=== PATIENT | male | born 1975 | race Caucasian/White ===

== ENCOUNTER 2020-11-05 22:27 | Emergency (ER) | payer OTHER, BC ==
[~2020-11-05] VITALS: Ht 182.9 cm; Wt 131.0 kg
[~2020-11-05 22:27] MED LIST: ATORVASTATIN CA10 MG PO; BL IBUPROFEN200 MG PO; DEPO-TESTOS100 MG/ML IM; FLEXERIL PO; LEVOTHYROXIN75 MCG PO; LEVOTHYROXIN88 MC1 PO; LEVOTHYROXINE50 MCG PO; LISINOPRIL10 MG PO; LISINOPRIL20 M1 PO; METFORMIN500 MG PO; ONE TOUCH ULTRA 100 TOP; ONETOUCH DELICA30 G TOP; PROAIR HFA IN; TIZANIDINE4 MG PO; ULTRAM50 M1 PO; [UNRECOGNIZED DRUG - OTHER] EX; [UNRECOGNIZED DRUG - OTHER] XX
[2020-11-05] MEDS ORDERED: MOTRIN400 MG/TAB PO (22:46)
[2020-11-05 23:28] VITALS: BP 151/86
== END 2020-11-05 23:40 | disposition home or self-care (01) | DRG 605 ==
LOC: ED 22:27
DX: S80.812A Abrasion, left lower leg, initial encounter (principal); I10 Essential (primary) hypertension; E03.9 Hypothyroidism, unspecified; E11.9 Type 2 diabetes mellitus without complications; F17.200 Nicotine dependence, unspecified, uncomplicated; V49.40XA Driver injured in collision with unspecified motor vehicles in traffic accident, initial encounter; Y99.0 Civilian activity done for income or pay; Z79.84 Long term (current) use of oral hypoglycemic drugs

== ENCOUNTER 2022-06-24 07:22 | Day surgery (SDC) | payer BC ==
[~2022-06-24] VITALS: Ht 182.9 cm; Wt 138.3 kg
[~2022-06-24 07:22] MED LIST changes: +MOTRIN400 MG/TAB PO; +OMEPRAZOLE DR40 MG PO
[2022-06-24 09:44] VITALS: BP 113/76
== END 2022-06-24 10:00 | disposition home or self-care (01) | DRG 392 ==
LOC: ENDO 07:22 → ORM 11:30 → ENDO 11:30
PROVIDERS: ATTEND Internal Medicine Gastroenterology
PROC: 0DBP8ZX Excision of Rectum, Via Natural or Artificial Opening Endoscopic, Diagnostic (ICD-10-PCS; principal; 2022-06-24)
PROC: 0DBL8ZX Excision of Transverse Colon, Via Natural or Artificial Opening Endoscopic, Diagnostic (ICD-10-PCS; 2022-06-24)
PROC: 0DB98ZX Excision of Duodenum, Via Natural or Artificial Opening Endoscopic, Diagnostic (ICD-10-PCS; 2022-06-24)
PROC: 0DB78ZX Excision of Stomach, Pylorus, Via Natural or Artificial Opening Endoscopic, Diagnostic (ICD-10-PCS; 2022-06-24)
DX: K29.70 Gastritis, unspecified, without bleeding (principal); D12.3 Benign neoplasm of transverse colon; K62.1 Rectal polyp; K57.30 Diverticulosis of large intestine without perforation or abscess without bleeding; K64.8 Other hemorrhoids; K42.9 Umbilical hernia without obstruction or gangrene; Z79.899 Other long term (current) drug therapy

== ENCOUNTER 2022-12-25 10:26 | Emergency (ER) | payer OTHER, BC ==
[~2022-12-25] VITALS: Ht 182.9 cm; Wt 129.0 kg
[2022-12-25 10:42] VITALS: BP 143/82
[2022-12-25 11:01] VITALS: BP 136/79
[2022-12-25 11:01] LABS: BASO% 0.2 % (0-3); EOS% 2.6 % (0-8); HEMATOCRIT 51.2 % (39.0-50.0); HEMOGLOBIN 16.6 g/dl (14.0-18.0); IMMATURE GRANULOCYTES 0.3 % (0.0-5.0); LYMPH% 19.1 % (15-41); MEAN CELL VOLUME 91.6 fL CALC (80.0-100.0); MEAN CORPUSCULAR HGB 29.7 pG CALC (26.0-32.0); MEAN CORPUSCULAR HGB CONC 32.4 g/dL CAL (32.0-36.0); MONO% 6.5 % (2-13); NEUT# 8.82 thou/uL (1.82-7.42); NEUT% 71.3 % (42-76); RED BLOOD COUNT 5.59 mill/uL (4.70-6.10); RED CELL DISTRI WIDTH 13.7 % (11.5-15.5)
[2022-12-25 11:12] LABS: ALBUMIN 4.8 g/dL (3.2-5.0); ALKALINE PHOSPHATASE 55 u/l (38-126); ANION GAP 16 (6-22 (CALC)); BUN 15 mg/dL (9-20); BUN/CREATININE RATIO 15 (12-20 (CALC)); CARBON DIOXIDE 23 mmol/l (22-30); CHLORIDE 103 mmol/l (95-108); GFR FOR AFR.AMER. > 60 ML/MIN (>=60 (CALC)); GFR OTHER RACES > 60 ML/MIN (>=60 (CALC)); SGOT/AST 52 u/l (17-59); SODIUM 138 mmol/l (137-146); TOTAL PROTEIN 8.2 g/dL (6.3-8.2)
[2022-12-25 11:13] LABS: BILIRUBIN, TOTAL 0.8 mg/dL (0.2-1.3)
[2022-12-25 11:15] LABS: INTERNATIONAL NORMALIZED RATIO 1.1 RATIO (0.7-1.3); PROTHROMBIN TIME 11.1 SECONDS (9.0-12.5)
[2022-12-25 11:31] VITALS: BP 110/73
[2022-12-25 11:54] LABS: URINE COLOR YELLOW
[2022-12-25 11:55] LABS: URINE BILIRUBIN - DIPSTICK NEGATIVE (NEGATIVE); URINE BLOOD DIPSTICK NEGATIVE (NEGATIVE); URINE GLUCOSE - DIPSTICK NEGATIVE (NEGATIVE); URINE KETONE 15 mg/dL (NEGATIVE); URINE LEUK ESTERASE NEGATIVE (NEGATIVE); URINE NITRITE - DIPSTICK NEGATIVE (Negative); URINE PH 6.5 (4.5-8.0); URINE PROTEIN - DIPSTICK 30 mg/dL (NEG-TRACE); URINE UROBILINOGEN - DIPSTICK 0.2 E.U./dL (0.2)
[2022-12-25 12:01] VITALS: BP 121/85
[2022-12-25] MEDS ORDERED: PROAIR HFA IN (12:43)
[2022-12-25] MEDS ORDERED: MEDDOSEPAK PO (12:43)
[2022-12-25 12:51] VITALS: BP 121/85
== END 2022-12-25 12:55 | disposition home or self-care (01) | DRG 918 ==
LOC: ED 10:26
PROVIDERS: Family Medicine
DX: T59.811A Toxic effect of smoke, accidental (unintentional), initial encounter (principal); J70.5 Respiratory conditions due to smoke inhalation; I10 Essential (primary) hypertension; E11.9 Type 2 diabetes mellitus without complications; E03.9 Hypothyroidism, unspecified; F17.220 Nicotine dependence, chewing tobacco, uncomplicated; Y99.0 Civilian activity done for income or pay; Z79.84 Long term (current) use of oral hypoglycemic drugs